=== PATIENT | female | born 1940 | race Caucasian/White ===

== ENCOUNTER 2018-03-29 20:51 | Observation (INO) | payer OTHER, MEDICARE ==
[~2018-03-29] VITALS: Ht 152.4 cm; Wt 59.3 kg
[2018-03-29 21:55] LABS: BASOPHIL (%) 0.3 % (0-1); EOSINOPHIL (%) 4.2 % (0-5); EOSINOPHIL COUNT 0.3 K/uL (0-0.3); HEMATOCRIT 38.5 % (36.0-46.0); HEMOGLOBIN 12.6 G/DL (11.9-15.5); IMMATURE GRANULOCYTE (%) 0.3 % (0.0-0.7); LYMPHOCYTE (%) 20.2 % (15-42); LYMPHOCYTE COUNT 1.5 K/uL (1.0-2.8); MCH 30.4 PG (29.0-34.0); MCHC 32.7 G/DL (30.0-36.0); MONOCYTE (%) 10.2 % (3-12); MONOCYTE COUNT 0.8 K/uL (0-0.8); NEUTROPHIL (%) 64.8 % (45-76); NEUTROPHIL COUNT 4.7 K/uL (1.8-6.4); PLATELET COUNT 207 K/uL (156-360); RBC DIS.WIDTH-CV 15.3 % (11.8-14.6); RBC DIS.WIDTH-SD 52.1 % (39-53); RED BLOOD COUNT 4.14 M/uL (3.80-5.20); WHITE BLOOD COUNT 7.3 K/uL (4.1-10.2)
[2018-03-29 22:09] LABS: CHLORIDE 103 mEq/L (99-109); POTASSIUM 3.7 mEq/L (3.7-5.4); SODIUM 137 mEq/L (136-147)
[2018-03-29 22:11] LABS: GLUCOSE 97 mg/dL (70-99)
[2018-03-29 22:12] LABS: TOTAL PROTEIN 7.5 g/dL (6.4-8.3)
[2018-03-29 22:13] LABS: TOTAL BILIRUBIN 0.3 mg/dL (0.0-1.0)
[2018-03-29 22:15] LABS: ALKALINE PHOSPHATASE 81 IU/L (3-129); CREATININE 1.1 mg/dL (0.6-1.3); GFR ESTIMATE (CALCULATED) 51 mL/min/
[2018-03-29 22:16] LABS: UREA NITROGEN (BUN) 17 mg/dL (9-23)
[2018-03-29 22:17] LABS: AST (GOT) 39 IU/L (2-34)
[2018-03-29 22:18] LABS: ALT (GPT) 14 IU/L (3-49)
[2018-03-29 22:18] LABS: TROP-I INTERPRETATION NEGATIVE; TROPONIN-I < 0.01 ng/mL (0.0-0.30)
[2018-03-29 22:35] LABS: APPEARANCE CLEAR ((CLEAR)); BILIRUBIN NEGATIVE; BLOOD NEGATIVE; COLOR STRAW ((YELLOW)); GLUCOSE (STRIP) NEGATIVE; KETONES NEGATIVE; LEUKOCYTES NEGATIVE; NITRITE NEGATIVE; PROTEIN (STRIP) NEGATIVE; SPECIFIC GRAVITY 1.005 (1.000-1.030); UCUL ADDED? NO; UROBILINOGEN 0.2 MG/DL (0.2-1.0)
[2018-03-29 22:44] LABS: HDL CHOLESTEROL 72 MG/DL (Desirable>=50); LDL CHOLESTEROL 115 mg/dL (Desirable<100); NON-HDL CHOLESTEROL 152 mg/dL (Desirable<160); TOTAL CHOLESTEROL 224 mg/dL (Desirable<200); TRIGLYCERIDES 187 MG/DL (Normal: <150)
[2018-03-29] MEDS ORDERED: LO-DOSE ASPIRIN81 M1 PO (23:03)
[2018-03-29] MEDS ORDERED: VITAMIN C1000 MG PO (23:03)
[2018-03-29] MEDS ORDERED: XELODA500 MG PO (23:03)
[2018-03-29] MEDS ORDERED: VITAMIN D2000 UNI1 PO (23:04)
[2018-03-29] MEDS ORDERED: VITAMIN E100 UNIT PO (23:04)
[2018-03-29] MEDS ORDERED: B-COMPLEX-VITA1 EACH PO (23:05)
[2018-03-30 01:18] VITALS: BP 144/95
[2018-03-30 04:00] VITALS: BP 170/83
[2018-03-30 05:40] LABS: HEMATOCRIT 36.9 % (36.0-46.0); MCH 30.2 PG (29.0-34.0); MCHC 32.5 G/DL (30.0-36.0); MCV 92.7 FL (83-99); PLATELET COUNT 204 K/uL (156-360); RBC DIS.WIDTH-CV 15.4 % (11.8-14.6); RBC DIS.WIDTH-SD 52.9 % (39-53); RED BLOOD COUNT 3.98 M/uL (3.80-5.20); WHITE BLOOD COUNT 5.8 K/uL (4.1-10.2)
[2018-03-30 06:16] LABS: CHLORIDE 103 MEQ/L (99-109); CREATININE 1.1 MG/DL (0.6-1.3); GFR ESTIMATE (CALCULATED) 51 mL/min/; GLUCOSE 124 mg/dL (70-99); POTASSIUM 3.7 MEQ/L (3.7-5.4); SODIUM 139 MEQ/L (136-147); UREA NITROGEN (BUN) 17 mg/dL (9-23)
[2018-03-30 09:49] LABS: HEMOGLOBIN A1c (GLYCOHEMOGLOB) 5.5 % (Below 5.7)
[2018-03-30] MEDS ORDERED: NIFEDIPINE ER30 MG PO (11:17)
[2018-03-30] MEDS ORDERED: PRAVACHOL40 MG PO (11:18)
[2018-03-30 11:50] VITALS: BP 174/65
[2018-03-30 15:17] VITALS: BP 160/60
== END 2018-03-30 17:28 | disposition home or self-care (01) ==
LOC: EME 20:51 → EDOF 23:23 → 4SOUTH 23:23 → ENRESERV 23:31 → 4SOUTH 03-30 01:03
PROVIDERS: Emergency Medicine; Hospitalist
DX: G45.9 Transient cerebral ischemic attack, unspecified (principal); I10 Essential (primary) hypertension; Z85.3 Personal history of malignant neoplasm of breast; E78.5 Hyperlipidemia, unspecified; G62.0 Drug-induced polyneuropathy; T45.1X5A Adverse effect of antineoplastic and immunosuppressive drugs, initial encounter; C79.51 Secondary malignant neoplasm of bone; Z79.810 Long term (current) use of selective estrogen receptor modulators (SERMs); R60.9 Edema, unspecified; Z85.9 Personal history of malignant neoplasm, unspecified
CPT/HCPCS: 70450; 70551; 71046; 80048; 80053; 80061; 81003; 83036; 84484; 85025; 85027; 93005; 93880; 99281; 99285; G0378; J0360; J1644